=== PATIENT | male | born 1990 ===

== ENCOUNTER 2018-05-16 06:00 | Day surgery (SDC) | payer BC ==
[~2018-05-16 06:00] MED LIST: FLEXERIL PO; VOLTAREN-XR100 MG PO; ZOLOFT25 MG PO
== END 2018-05-16 10:55 | disposition home or self-care (01) ==
LOC: CIR.AMB 06:00 → ADM 09:15 → CIR.AMB 10:55
DX: N47.1 Phimosis (principal)